=== PATIENT | female | born 1970 | race Two or more races ===

== ENCOUNTER 2018-01-14 19:59 | Emergency (ER) | payer SELFPAY ==
[~2018-01-14] VITALS: Ht 172.7 cm; Wt 72.5 kg
[2018-01-14 20:08] VITALS: BP 144/78
[2018-01-14] MEDS ORDERED: OXYcodone/APAP 5/325MG TABLET PO ONE (20:30)
[2018-01-14] MEDS ORDERED: KETOROLAC 30 MG/1 ML IM ONE (20:30)
[2018-01-14] MEDS ORDERED: ONDANSETRON ODT 4 MG PO ONE (20:30)
[2018-01-14] MEDS ORDERED: KETOROLAC 30 MG/1 ML ONE (20:36)
[2018-01-14] MEDS ORDERED: OXYcodone/APAP 5/325MG TABLET ONE (20:36)
[2018-01-14] MEDS ORDERED: ONDANSETRON ODT 4 MG ONE (20:36)
== END 2018-01-14 21:48 | disposition home or self-care (01) ==
LOC: ED 21:40
DX: G56.01 Carpal tunnel syndrome, right upper limb (principal); M25.531 Pain in right wrist
CPT/HCPCS: 29125; 73110; 99284; J1885; Q0162

== ENCOUNTER 2018-06-15 19:24 | Emergency (ER) | payer OTHER ==
[~2018-06-15] VITALS: Ht 172.7 cm; Wt 68.9 kg
[2018-06-15 19:30] VITALS: BP 113/73
[2018-06-15] MEDS ORDERED: ONDANSETRON ODT 4 MG ONE (20:17)
[2018-06-15] MEDS ORDERED: ONDANSETRON ODT 4 MG PO ONE (20:30)
== END 2018-06-15 21:53 | disposition home or self-care (01) ==
LOC: ED 20:39
DX: R11.2 Nausea with vomiting, unspecified (principal)
CPT/HCPCS: 99283; Q0162

== ENCOUNTER 2018-06-18 11:21 | Emergency (ER) | payer OTHER ==
[~2018-06-18] VITALS: Ht 167.6 cm; Wt 69.1 kg
[2018-06-18] MEDS ORDERED: MECLIZINE CHEWABLE 25 MG TAB PO ONE ×2 (12:00→12:30)
[2018-06-18] MEDS ORDERED: MECLIZINE CHEWABLE 25 MG TAB ONE (12:02)
[2018-06-18 12:13] VITALS: BP 123/78
[2018-06-18 12:18] LABS: BASOPHILS # (AUTO) 0.01 x10^3/uL (0-0.1); BASOPHILS % (AUTO) 0 % (0-1); EOSINOPHILS # (AUTO) 0.12 x10^3/uL (0-0.4); EOSINOPHILS % (AUTO) 2 % (1-7); LYMPHOCYTES # (AUTO) 1.41 x10^3/uL (1-3.4); LYMPHOCYTES % (AUTO) 20 % (22-44); MD NO; MEAN CORPUSCULAR HEMOGLOBIN 29.6 pg (27.0-34.8); MEAN CORPUSCULAR HGB CONC 33.7 g/dL (32.4-35.8); MEAN CORPUSCULAR VOLUME 87.9 fL (80-100); MEAN PLATELET VOLUME 8.6 fL (7.4-10.4); MONOCYTES # (AUTO) 0.08 x10^3/uL (0.2-0.8); MONOCYTES % (AUTO) 1 % (2-9); NEUTROPHILS % (AUTO) 78 % (42-75); PLATELET COUNT 250 x10^3/uL (130-400); RED BLOOD COUNT 4.27 x10^6/uL (3.82-5.3); RED CELL DISTRIBUTION WIDTH 13.7 % (9.6-15.2)
[2018-06-18 12:32] LABS: ALBUMIN 3.8 g/dL (3.4-5.0); ANION GAP 6 mmol/L (5-15); CALCIUM 8.5 mg/dL (8.5-10.1); CHLORIDE 108 mmol/L (98-107); CREATININE 1.17 mg/dL (0.55-1.02)
[2018-06-18 13:10] LABS: MICROSCOPIC AUTO
[2018-06-18 13:16] LABS: CULTURE INDICATED? YES
== END 2018-06-18 14:15 | disposition home or self-care (01) ==
LOC: ED 12:10
DX: R42 Dizziness and giddiness (principal)
CPT/HCPCS: 36415; 80048; 81001; 82040; 85025; 87077; 87086; 87186; 93005; 99284